=== PATIENT | male | born 1950 | race Caucasian/White ===

== ENCOUNTER 2017-05-11 17:24 | Emergency (ER) | payer MEDICARE ==
--- NOTE | ~2017-05-11 | CR93 ---
[facility] Service of [facility] & [facility] RADIOLOGY TEXT RESULTS PATIENT: LIVIA KELLY LOCATION: [facility] : 50 UNIT #: [id number] AGE: [address]: Ankit Canchola MD SEX: M ORDER DR: [id number] [facility] [address] [facility]. [place], [place] [address] [id number] MR#: [id number] #: [id number] NAME: LIVIA KELLY : 1950 SEX: M STUDY DATE/TIME: 05/11/2017 18:37 UNIT: [facility] ROOM: STUDY DESCRIPTION: CR Elbow Min 3 Views Lt Attending Physician: Ankit Canchola M.D. Ordering Physician: Ankit Canchola M.D. Primary Care Physician: Primary Care Physician No MEDICAL IMAGING REPORT This report is preliminary unless electronic signature is present EXAM Left elbow 3 views HISTORY Elbow pain after fall today. FINDINGS 3 views left elbow demonstrate a transverse fracture through the olecranon with 1.8 cm separation of the fracture fragment and adjacent tiny comminuted fracture fragments. Marked soft tissue swelling along the posterior margin of the elbow. Mild degenerative changes. No dislocation. Dictated by... Charlie Jones M.D. THIS IS AN ELECTRONICALLY VERIFIED REPORT Charlie Jones M.D. at 05/13/2017 12:06 AM LEONCIO/vinny TD: 05/12/2017 04:42 JOB #: [id number] MEDICAL IMAGING REPORT Page 1 of 1 COPY
[2017-05-14] MEDS ORDERED: SEROQUEL100 MG (14:39)
[2017-05-14] MEDS ORDERED: QUETIAPINE FUM200 MG PO (14:40)
[2017-05-14] MEDS ORDERED: LITHIUM CARBON150 MG PO (14:41)
[2017-05-14] MEDS ORDERED: TENORMIN25 M1 PO (14:41)
[2017-05-14] MEDS ORDERED: VASOTEC (14:42)
[2017-05-14] MEDS ORDERED: LORAZEPAM0.5 MG PO (14:42)
[2017-05-14] MEDS ORDERED: SIMVASTATIN40 MG PO (14:42)
[2017-05-14] MEDS ORDERED: HYDROCODON-ACE1 EAC7 PO (15:07)
== END 2017-05-11 20:30 | disposition home or self-care (01) ==
LOC: CED 17:24
DX: S52.022A Displaced fracture of olecranon process without intraarticular extension of left ulna, initial encounter for closed fracture (principal); I10 Essential (primary) hypertension; F17.210 Nicotine dependence, cigarettes, uncomplicated; W19.XXXA Unspecified fall, initial encounter
CPT/HCPCS: 29260; 73080; 99283

== ENCOUNTER → 2017-05-14 | Outpatient (CLI) | payer MEDICARE ==
[~2017-05-14] MED LIST: ATENOLOL25 MG PO; BACTRIM 400-801 EACH PO; HYDROCODON-ACE1 EAC7 PO; LITHIUM CARBON150 MG PO; LORAZEPAM0.5 MG PO; QUETIAPINE FUM200 MG PO; SEROQUEL100 MG; SIMVASTATIN40 MG PO; TENORMIN25 M1 PO; VASOTEC
--- NOTE | ~2017-05-14 | EKG ---
PATIENT: LIVIA KELLY UNIT #: [id number] Ventricular Rate: 85 BPM Atrial Rate: 85 BPM P-R Interval: 146 ms QRS Duration: 92 ms Q-T Interval: 368 ms QTC Calculation(Bezet): 437 ms P [place]: 83 degrees Calculated R [place]: 71 degrees Calculated T [place]: 76 degrees Diagnosis Line: Normal sinus rhythm Diagnosis Line: Nonspecific T wave abnormality Diagnosis Line: Abnormal ECG Diagnosis Line: Diagnosis Line: Confirmed by NIR CATALAN MD ([id number]) on Diagnosis Line: 05/14/2017 5:28:54 PM INTERPRETING MD: ALAYNA MORAN
[2017-05-14 14:45] LABS: HEMATOCRIT 34.4 % (38.0-50.0); HEMOGLOBIN 11.7 gm/dL (13.0-16.0); MEAN CELL VOLUME 90.7 FL (83-96); MEAN CORPUSCULAR HEMOGLOBIN 30.7 PG (28-34); MEAN CORPUSCULAR HGB CONC 33.9 g/dL (30-36); MEAN PLATELET VOLUME 9.3 FL (6.5-11.5); RED BLOOD COUNT 3.8 X10e (3.90-5.60); RED CELL DISTRIBUTION WIDTH 13.1 % (11.0-15.5); WHITE BLOOD COUNT 8.7 X10e3 (4.0-10.5)
[2017-05-14 15:25] LABS: CALCIUM SERUM 9.6 mg/dL (8.4-10.2); GLOM FILT RATE Estimated 78.1 mL/min (>60); POTASSIUM 4.1 mmol/L (3.5-5.1)
== END | disposition home or self-care (01) ==
LOC: CAMB 13:47
PROVIDERS: Orthopaedic Surgery
DX: Z01.818 Encounter for other preprocedural examination (principal); S52.022A Displaced fracture of olecranon process without intraarticular extension of left ulna, initial encounter for closed fracture; R94.31 Abnormal electrocardiogram [ECG] [EKG]
CPT/HCPCS: 36415; 80048; 85027; 93005

== ENCOUNTER → 2017-05-19 | Day surgery (SDC) | payer MEDICARE ==
--- NOTE | ~2017-05-19 | OR ---
Unit #: [id number] #: [id number] Patient: LIVIA KELLY [id number] [address] [place], [place] [address] [id number] I MR#: [id number] NAME: LIVIA KELLY ROOM: Date of Procedure: 05/19/2017 Admission Date: 05/19/2017 Surgeon: John Gonzalez M.D. : 1950 Attending Physician: John Gonzalez M.D. OPERATIVE REPORT PREOPERATIVE DIAGNOSIS Left displaced olecranon fracture. POSTOPERATIVE DIAGNOSIS Left displaced olecranon fracture. PROCEDURE PERFORMED Open reduction and internal fixation of left olecranon fracture. IMPLANTS [employer] ALPS locking precontoured olecranon plate, short. CHANNEL CEMENTER Sharon Melendez. ANESTHESIA General with interscalene nerve block. ESTIMATED BLOOD LOSS Minimal. COMPLICATIONS None apparent. INDICATIONS FOR PROCEDURE Mr. Kelly is a 66-year-old gentleman with a left displaced olecranon fracture. We discussed operative intervention. This has been reviewed with he and his sister. They elected to proceed. DESCRIPTION OF PROCEDURE The patient was identified in the preoperative holding area. The operative site was marked. A regional block was performed. Preoperative antibiotics were administered. The patient was brought to the operating room and placed supine on the operating table. A general anesthetic was induced. The patient was then positioned supine with the left arm across the chest on a padded Roberts stand. A tourniquet was applied in the left arm. The left arm was then prepped and draped in sterile fashion. The arm was exsanguinated and the tourniquet inflated. A midline posterior incision was created over the elbow curving laterally around the tip of the olecranon. Dissection was carried down through subcutaneous tissues. There was a traumatic disruption to the deeper fascia. The Unit #: [id number] #: [id number] Patient: LIVIA KELLY fracture site was readily identifiable. We directed visualization into the ulnohumeral joint directly at the distal humerus. Hematoma and fracture debris were removed and debrided. Two K-wires were then placed in the proximal olecranon fragment. This was then reduced and the crossing K-wires secured into the intact shaft. This gave us a good anatomic provisional reduction. The plate was then secured to the proximal segment again with the K-wire in distally in the shaft. We then placed 2 locking screws in the olecranon fragment. We then placed another nonlocking screw into the shaft in the oblong screw hole to further compress through the fracture. As we tightened the jackscrew man, our previous locking screw was loosened. We achieved good compression to the fracture site. We then completed our fixation in the shaft with one further locking screw distally. We then tightened our previous locking screw. This maintained our compression to the fracture site. Lastly, we placed our so-called home-run screw, which was a long locking screw across the fracture into the coronoid. Final images were checked under C-arm imaging. This demonstrated anatomic reduction of this fracture and satisfactory hardware placement. We then drilled a 2.0 mm drill hole through the ulnar shaft and passed a FiberTape suture in a locking stitch through the triceps. This was then tied back at the FiberWire tension band on the lateral aspect of the ulna. The wound was irrigated and closed in a layered fashion with 0 Vicryl, 2-0 Vicryl, and chela. The patient was placed in a well-padded posterior splint. DISPOSITION Stable to the recovery room. Dictated by... Nathalie Mina/maximo TD: 05/20/2017 07:47 JOB #: [id number] OPERATIVE REPORT Page 1 of 1 X John Gonzalez MD X PROCEDURE OPERATIVE NOTE
--- NOTE | ~2017-05-19 | CR87 ---
[facility] A Service of [facility] RADIOLOGY TEXT RESULTS PATIENT: LIVIA KELLY LOCATION: [facility] : 50 UNIT #: [id number] AGE: [address]: John Gonzalez MD SEX: M ORDER DR: [id number] [facility] [address] [place], [place] [address] [id number] I MR#: [id number] Acc #: [id number] NAME: LIVIA KELLY : 1950 SEX: M STUDY DATE/TIME: 05/19/2017 11:30 UNIT: [facility] ROOM: STUDY DESCRIPTION: CR Elbow 1 View Lt Attending Physician: John Gonzalez M.D. Ordering Physician: John Gonzalez M.D. Primary Care Physician: Primary Care Physician No MEDICAL IMAGING REPORT This report is preliminary unless electronic signature is present EXAM Left elbow 3 views, 05/19/2017 11:30 hours HISTORY Patient for ORIF of displaced olecranon fracture by Dr. Gonzalez. Fluoroscopy time 18 seconds. COMPARISON Left elbow film, 05/11/2017 FINDINGS Two intraoperative views in the lateral projection are submitted. Patient has had plate and screw fixation through the proximal ulna with near anatomic alignment of the displaced ulnar fracture. Humerus is intact. No radial head fracture seen. IMPRESSION Two intraoperative views after 18 seconds of fluoroscopy time demonstrate plate and screw fixation across the displaced olecranon fracture with near anatomic alignment. Dictated by... Mary Alfonso M.D. THIS IS AN ELECTRONICALLY VERIFIED REPORT Mary Alfonso M.D. at 05/19/2017 2:30 PM YANDEL/barbara TD: 05/19/2017 12:57 JOB #: [id number] MEDICAL IMAGING REPORT [facility] A Service of [facility] RADIOLOGY TEXT RESULTS PATIENT: LIVIA KELLY LOCATION: [facility] : 50 UNIT #: [id number] AGE: [address]: John Gonzalez MD SEX: M ORDER DR: Page 1 of 1 COPY
== END | disposition home or self-care (01) ==
LOC: CSUR 07:37 → CPACUOF 08:51 → CSUR 10:00
DX: S52.022A Displaced fracture of olecranon process without intraarticular extension of left ulna, initial encounter for closed fracture (principal); K21.9 Gastro-esophageal reflux disease without esophagitis; F17.210 Nicotine dependence, cigarettes, uncomplicated; Z79.899 Other long term (current) drug therapy
CPT/HCPCS: 73070; 76000; C1713; J0690; J2250; J2405; J2795; J3010

== ENCOUNTER 2017-05-30 12:37 | Emergency (ER) | payer MEDICARE ==
[~2017-05-30] VITALS: Ht 170.2 cm; Wt 57.6 kg
[~2017-05-30 12:37] MED LIST changes: -ATENOLOL25 MG PO; -BACTRIM 400-801 EACH PO
[2017-05-30 14:06] LABS: URINE SOURCE CLEAN CATCH
[2017-05-30 14:18] LABS: BASOPHIL# 0.1 X10e3 (0-0.3); BASOPHIL% 0.7 % (0-2.5); EOSINOPHIL# 0.4 X10e3 (0-0.7); EOSINOPHIL% 2.7 % (0.0-7.0); HEMATOCRIT 37.6 % (38.0-50.0); HEMOGLOBIN 12.3 gm/dL (13.0-16.0); LYMPHOCYTE# 1.1 X10e3 (1.0-3.5); LYMPHOCYTE% 7.2 % (17.0-45.0); MEAN CORPUSCULAR HEMOGLOBIN 29.5 PG (28-34); MEAN CORPUSCULAR HGB CONC 32.8 g/dL (30-36); MEAN PLATELET VOLUME 8.1 FL (6.5-11.5); MONOCYTE# 0.6 X10e3 (0-1.0); MONOCYTE% 4.2 % (3.0-12.0); NEUTROPHIL# 12.8 X10e3 (1.5-7.1); NEUTROPHIL% 85.2 % (40-75); PLATELET COUNT 409 X10e3 (140-420); RED BLOOD COUNT 4.18 X10e (3.90-5.60); RED CELL DISTRIBUTION WIDTH 13.8 % (11.0-15.5)
[2017-05-30 14:19] LABS: DIFF IND NO
[2017-05-30 14:21] LABS: URINE APPEARANCE CLEAR; URINE BILIRUBIN NEG (NEG); URINE BLOOD 3+ (NEG); URINE COLOR RED; URINE GLUCOSE NEG (NEG); URINE KETONE NEG (NEG); URINE LEUKOCYTE ESTERASE TRACE (NEG); URINE NITRATE NEG (NEG); URINE PH 7.5 (5-8); URINE PROTEIN 1+ (NEG); URINE SPECIFIC GRAVITY 1.009 (1.003-1.035)
[2017-05-30 14:24] LABS: U HYALINE CASTS AUWI 0-2 /[LPF]; URBCS1 AUWI INNUM /[HPF] (0-2); URINE BACTERIA AUWI NEG (NEGATIVE); URINE SQUAMOUS EPITHELIAL CELL NONE SEEN /[HPF]
[2017-05-30 14:29] LABS: CULTURE INDICATED? NO
[2017-05-30 14:36] LABS: CALCIUM SERUM 9.6 mg/dL (8.4-10.2); CREATININE SERUM 0.8 mg/dL (0.6-1.4); GLOM FILT RATE Estimated 93.1 mL/min (>60); POTASSIUM 4.3 mmol/L (3.5-5.1)
[2017-05-31] MEDS ORDERED: ATENOLOL25 MG PO (10:01)
== END 2017-05-30 14:58 | disposition home or self-care (01) ==
LOC: CED 12:37
PROVIDERS: Emergency Medicine
DX: R33.9 Retention of urine, unspecified (principal); I10 Essential (primary) hypertension; Z79.899 Other long term (current) drug therapy
CPT/HCPCS: 36415; 51702; 80048; 81003; 85025; 99283

== ENCOUNTER 2017-05-30 17:04 | Observation (INO) | payer MEDICARE ==
[~2017-05-30] VITALS: Ht 170.2 cm; Wt 57.6 kg
--- NOTE | ~2017-05-30 | HP ---
Unit #: [id number] #: [id number] Patient: LIVIA KELLY [id number] [address] [address] [id number] I MR#: [id number] NAME: LIVIA KELLY ROOM: 240 Age: Sex: M Admission Date: 05/30/2017 : 1950 Attending Physician: Anastacio Cortes M.D. Primary Care Physician: Marce Tenorio A.P.R.N. HISTORY AND PHYSICAL ADDENDUM Apparently he had stopped taking his Flomax. We will start him on Rap[place]flo. Dictated by Nathalie Cisneros/barbara TD: 05/31/2017 07:13 JOB #: [id number] HISTORY AND PHYSICAL Page 1 of 1 X Anastacio Cortes MD X HISTORY AND PHYSICAL
--- NOTE | ~2017-05-30 | HP ---
Unit #: [id number] #: [id number] Patient: LIVIA KELLY [id number] [address] [place], [place] [address] [id number] I MR#: [id number] NAME: LIVIA KELLY ROOM: [address] Age: 66 Sex: M Admission Date: 05/30/2017 : 1950 Attending Physician: Anastacio Cortes M.D. Primary Care Physician: Marce Tenorio A.P.R.N. HISTORY AND PHYSICAL ADMITTING DIAGNOSIS Urinary retention. CHIEF COMPLAINT Urinary retention. HISTORY OF PRESENT ILLNESS The patient is a 66-year-old male who underwent a TURP with my partner, Dr. Julio César Briggs in 2013. He is on Flomax chronically. He was doing well until the last three days when he has had increased difficulty urinating. He apparently presented to the emergency room earlier today and a Neville was placed but he went home and it stopped draining and he had blood. He returned and he had a Neville replaced by the emergency room staff which is now draining. PAST MEDICAL HISTORY Hypertension, gastroesophageal reflux disease, bipolar disease, anxiety. PAST SURGICAL HISTORY Transurethral resection of his prostate, open reduction internal fixation of left olecranon fracture. MEDICATIONS AT HOME 1. Atenolol. 2. Enalapril. 3. Zocor. 4. Flomax. 5. Prevacid. 6. [place]. 7. Quetiapine. 8. Ativan. REVIEW OF SYSTEMS Positive for urinary hesitancy. Positive for hematuria after Neville placement. Negative for fever. Negative for chills. PHYSICAL EXAMINATION GENERAL APPEARANCE: Well-developed, white male in no acute distress. VITAL SIGNS: Temperature 98.3. Blood pressure 148/91. HEENT: Normocephalic, atraumatic. NECK: Supple. No lymphadenopathy. The patient has symmetric chest rise. The patient is breathing comfortably. ABDOMEN: Soft, nontender, nondistended. GENITOURINARY: He has a 16-Czech three-way catheter in place. I Unit #: [id number] #: [id number] Patient: LIVIA KELLY irrigated it. The urine is clear at this point. EXTREMITIES: No clubbing, cyanosis or edema. DIAGNOSTIC STUDIES LABORATORY: Creatinine 0.8. Hemoglobin 12.3, WBC count 15. ASSESSMENT AND PLAN Urinary retention. We will continue his Flomax. We will continue continuous bladder irrigation. He will need a cystoscopy as an outpatient. Dictated by Anastacio Cortes M.D. SHREYAS/betsy TD: 05/31/2017 07:19 JOB #: [id number] HISTORY AND PHYSICAL Page 1 of 1 X Anastacio Cortes MD X HISTORY AND PHYSICAL
--- NOTE | ~2017-05-30 | CO ---
Unit #: [id number] #: [id number] Patient: LIVIA KELLY [id number] [address] [address] [id number] I MR#: [id number] NAME: LIVIA KELLY ROOM: [address]74 Age: 66 Sex: M Admission Date: 05/30/2017 : 1950 Attending Physician: Anastacio Cortes M.D. Primary Care Physician: Marce Tenorio A.P.R.N. Consultation Date: 05/31/2017 CONSULTATION REPORT REFERRING PHYSICIAN Dr. Cortes REASON FOR CONSULT Medical management. HISTORY This 66-year-old male with hypertension, hyperlipidemia, bipolar disorder and BPH, was admitted to the urology service yesterday for urinary retention. The patient has a history of BPH and his sister believes that he previously underwent a TURP. Developed increasing voiding problems over the past two days. Was unable to urinate yesterday and presented to this emergency department around noon. A Neville catheter was placed. There was some hematuria post placement, according to sister. When the patient returned home, the catheter was no longer draining. He was brought back to this emergency department last evening and a three-way catheter was placed with a TUR drip. The patient was seen in the ER by Dr. Cortes. PAST MEDICAL HISTORY 1. Essential hypertension. 2. Bipolar disorder. 3. Hyperlipidemia. 4. GERD with esophageal stricture requiring dilation. 5. BPH, status post possible TURP. 6. Left olecranon fracture requiring surgery by Dr. Gonzalez 05/19/2017 for ORIF. The patient has a sling and swathe in place. ALLERGIES No known drug allergies. HOME MEDICATIONS 1. [place] 150 mg in the morning and 300 mg in the evening. 2. Seroquel 200 mg q. h.s. 3. Ativan 0.5 mg b.i.d. or t.i.d. p.r.n. 4. Atenolol 12.5 mg daily. 5. Zocor 40 mg daily. 6. Prevacid 30 mg daily. FAMILY HISTORY Bladder, colon, lung cancer, BPH. SOCIAL HISTORY Unit #: [id number] #: [id number] Patient: LIVIA KELLY The patient is living with his brother and sister. He smokes about two packs per day of tobacco, does not drink alcohol. REVIEW OF SYSTEMS Difficult to obtain as patient, himself, is a poor historian. Most of the history is obtained from the sister by bedside. PHYSICAL EXAMINATION GENERAL APPEARANCE: Pleasant, thin, 66-year-old male, currently in no acute distress. VITAL SIGNS: Temperature 98.3, pulse 79, respirations 16, blood pressure 148/91. O2 saturation is 97% on room air. HEENT: Eyes PERRLA. Extraocular muscles are intact. Pharynx is benign. The patient does have some findings consistent with some mild tardive dyskinesia. NECK: Supple without adenopathy or thyromegaly. CHEST: With some rhonchi. Minimal wheezing. CARDIAC: Normal S1 and S2 without murmur. ABDOMEN: Bowel sounds are present. No hepatosplenomegaly, tenderness or masses. EXTREMITIES: Without edema. Pedal pulses are markedly diminished. NEUROLOGIC EXAM: The patient is awake, alert. He has findings most consistent with some tardive dyskinesia on exam. He has equal strength throughout although his left arm is in a sling and swathe. He is weak on exam, however, and needs help just to sit up. DIAGNOSTIC STUDIES LABORATORY: Hematocrit is 37.6, white blood count is 15, normal platelet count. SMA-7 is normal. Urinalysis - positive protein, 3+ blood with innumerable red cells, 2-5 white cells, no bacteria. ASSESSMENT 1. The patient was admitted to urology service for urinary retention and hematuria. He has a history of BPH. 2. Essential hypertension. 3. Hyperlipidemia. 4. GERD. 5. Bipolar disorder. PLANS 1. Check labs in the morning and lithium level. 2. Medications were rewritten as per home doses and frequencies. 3. SCDs for DVT prophylaxis. Thank you very much for this consult. Will follow with you for medical problems. Dictated by... Alina Lugo M.D. AML/df Unit #: [id number] #: [id number] Patient: LIVIA KELLY TD: 05/31/2017 06:02 JOB #: [id number] CC: Sarina Sheldon M.D. CONSULTATION REPORT Page 1 of 1 X Alina Lugo MD CONSULTATION REPORT
[2017-05-31 08:35] LABS: BASOPHIL# 0.1 X10e3 (0-0.3); BASOPHIL% 0.7 % (0-2.5); EOSINOPHIL# 0.4 X10e3 (0-0.7); EOSINOPHIL% 3.6 % (0.0-7.0); HEMATOCRIT 36.8 % (38.0-50.0); HEMOGLOBIN 12.3 gm/dL (13.0-16.0); LYMPHOCYTE# 1.4 X10e3 (1.0-3.5); LYMPHOCYTE% 11.4 % (17.0-45.0); MEAN CORPUSCULAR HEMOGLOBIN 30.1 PG (28-34); MEAN CORPUSCULAR HGB CONC 33.5 g/dL (30-36); MEAN PLATELET VOLUME 7.6 FL (6.5-11.5); MONOCYTE# 0.8 X10e3 (0-1.0); MONOCYTE% 6.7 % (3.0-12.0); NEUTROPHIL# 9.5 X10e3 (1.5-7.1); NEUTROPHIL% 77.6 % (40-75); PLATELET COUNT 405 X10e3 (140-420); RED BLOOD COUNT 4.09 X10e (3.90-5.60); RED CELL DISTRIBUTION WIDTH 13.9 % (11.0-15.5); WHITE BLOOD COUNT 12.2 X10e3 (4.0-10.5)
[2017-05-31 08:36] LABS: DIFF IND NO
[2017-05-31 09:00] LABS: BUN/CREATININE RATIO 11.11; CALCIUM SERUM 9.1 mg/dL (8.4-10.2); CREATININE SERUM 0.9 mg/dL (0.6-1.4); GLOM FILT RATE Estimated 88.7 mL/min (>60); POTASSIUM 4.2 mmol/L (3.5-5.1)
[2017-05-31] MEDS ORDERED: ATENOLOL25 MG PO (10:01)
[2017-06-01 05:47] LABS: HEMATOCRIT 30.9 % (38.0-50.0); HEMOGLOBIN 10.6 gm/dL (13.0-16.0); MEAN CORPUSCULAR HEMOGLOBIN 30.9 PG (28-34); MEAN CORPUSCULAR HGB CONC 34.4 g/dL (30-36); MEAN PLATELET VOLUME 7.6 FL (6.5-11.5); RED BLOOD COUNT 3.43 X10e (3.90-5.60); RED CELL DISTRIBUTION WIDTH 14.1 % (11.0-15.5); WHITE BLOOD COUNT 8.3 X10e3 (4.0-10.5)
[2017-06-01 06:28] LABS: BUN/CREATININE RATIO 11.42; CALCIUM SERUM 8.7 mg/dL (8.4-10.2); CREATININE SERUM 0.7 mg/dL (0.6-1.4); GLOM FILT RATE Estimated 98.4 mL/min (>60); MAGNESIUM 1.8 mg/dL (1.6-3.0); POTASSIUM 3.9 mmol/L (3.5-5.1)
[2017-06-01] MEDS ORDERED: BACTRIM 400-801 EACH PO (09:31)
== END 2017-06-01 11:00 | disposition home or self-care (01) ==
LOC: CED 17:04 → CEDOF 20:07 → CED 23:39 → C2A 05-31 07:45 → CEDOF 05-31 07:45 → C2A 06-01 11:00
PROVIDERS: Emergency Medicine; Internal Medicine
DX: R33.9 Retention of urine, unspecified (principal); R31.9 Hematuria, unspecified; Z90.79 Acquired absence of other genital organ(s); I10 Essential (primary) hypertension; E78.5 Hyperlipidemia, unspecified; K21.9 Gastro-esophageal reflux disease without esophagitis; F31.9 Bipolar disorder, unspecified; F17.200 Nicotine dependence, unspecified, uncomplicated
CPT/HCPCS: 51702; 80048; 80178; 83735; 85025; 85027; 99284; G0378